=== PATIENT | female | born 1970 | race Caucasian/White ===

== ENCOUNTER 2021-05-13 18:41 | Observation (INO) | payer OTHER, SELFPAY ==
[2021-05-13] VITALS (10 sets, daily range): BP systolic 152–181; BP diastolic 68–90; PULSE 72–95; RESP 16–24; TEMP 36.9; O2SAT 94–100; BMI 34.7
--- NOTE | 2021-05-13 18:46 | ED_ITS ---
HPI - Neuro Symptoms/Deficit General Chief Complaint: Neuro Symptoms/Deficit Stated Complaint: left face/arm/hand numb 30 min ago Time Seen by Provider: 05/13/21 18:45 History of Present Illness HPI Narrative: 51-year-old female former smoker without any known chronic medical problems pr esents with a chief complaint of various neurologic symptoms that had since resolved. She was in her normal state of health until about 1800 tonight when she noticed a rather sudden onset left-sided facial numbness and tingling, confusion, difficulty finding words, left upper extremity numbness and weakness that lasted about 15 minutes and resolved prior to her arrival. She denies any recent trauma or injury. She has had no fever or chills. She denies any new medications or dietary change. She denies any chest pain or shortness of breath. She is currently asymptomatic. She was rapidly taken to CT but not activated as a code stroke as her BEFAST is currently negative and LAMS is negative. Related Data Allergies Allergy/AdvReac Type Severity Reaction Status Date / Time atropine [From ] Allergy Verified 05/13/21 19:25 hyoscyamine [From ] Allergy Verified 05/13/21 19:25 phenobarbital Allergy Verified 05/13/21 19:25 prochlorperazine Allergy Verified 05/13/21 19:25 [From Compazine] scopolamine [From ] Allergy Verified 05/13/21 19:25 Exam Narrative Exam Narrative: GENERAL: [51 year old patient appears stated age. Well-developed patient, in mild distress. HEAD: Atraumatic. Normocephalic. EYES: Pupils equal round and reactive. Extraocular motions intact. No scleral icterus. No injection or drainage. ENT: Nose without bleeding, purulent drainage. Throat without erythema, tonsillar hypertrophy or exudate. Airway patent. NECK: Trachea midline. Non tender CARDIOVASCULAR: Regular rate and rhythm without murmurs, gallops, or rubs. RESPIRATORY: Clear to auscultation. Breath sounds equal bilaterally. No wheezes, rales, or rhonchi. GASTROINTESTINAL: Abdomen soft, non-tender, nondistended. EXTREMITIES: No edema or joint tenderness. BACK: Nontender without deformity or crepitance. No flank tenderness. NEURO: AOx3. SKIN: No rash or erythema of visible areas NIH Stroke Scale 1a. LOC: Patient is alert and keenly responsive (0) 1b. LOC Questions: Patient answers both LOC questions accurately (0) 1c. LOC Commands: Patient performs both tasks correctly (0) 2. Best Gaze: Normal (0) 3. Visual: No visual loss (0) 4. Facial palsy: Normal symmetrical movements (0) 5. Motor arm: No drift (0) 6. Motor leg: No drift (0) 7. Limb ataxia: Absent (0) 8. Sensory: Normal (0) 9. Best language: No aphasia; normal (0) 10. Dysarthria: Normal (0) 11. Extinction and inattention: No abnormality (0) NIHSS: 0 Initial Vital Signs Initial Vital Signs: Vital Signs Temperature 98.4 F 05/13/21 18:55 Pulse Rate 95 H 05/13/21 18:55 Respiratory Rate 16 05/13/21 18:55 Blood Pressure 181/90 H 05/13/21 18:55 Pulse Oximetry 97 05/13/21 18:55 Course Orders Ordered: ED Orders 05/13/21 18:[address] angio head and neck Stat 05/13/21 18:56 Complete Blood Count AUTO DIFF Stat Comprehensive Metabolic Panel Stat Troponin & CK Cardiac Panel Stat 05/13/21 19:17 EKG-12 Lead Stat 05/13/21 19:32 Urine Drug Screen, Rapid Stat 05/13/21 20:32 Education, smoking cessation ONGOING 05/13/21 20:34 Consult to Discharge Planning Routine Consult to Occupational Therapy Evaluate & Treat Consult to Physical Therapy Evaluate & Treat MR stroke Urgent 05/13/21 20:35 EC echo doppler complete Urgent 05/14/21 05:00 Basic Metabolic Panel Routine Complete Blood Count AUTO DIFF Routine Hemoglobin A1C% w Est Avg Glu Routine Lipid Panel Routine Acetaminophen (Acetaminophen 325 Mg Tablet) 650 mg PO Q6HR PRN PRN Reason: Fever/Mild Pain (1-3) Aspirin (Aspirin Ec 81 Mg Tablet) 81 mg PO DAILY [facility] Atorvastatin Calcium (Atorvastatin 20 Mg Tablet) 80 mg PO BEDTIME FABIENNE Last Admin: 05/13/21 21:12 Dose: 80 mg Documented by: SB Enoxaparin Sodium (Enoxaparin 40 Mg/0.4 Ml Syringe) 40 mg SUBCUT DAILY [facility] Sodium Chloride (Normal Saline 0.9%) 1,000 mls @ 150 mls/hr IV CONT [facility] Last Infusion: 05/13/21 23:02 Dose: 0 mls/hr Documented by: Admin: 05/13/21 18:58 Dose: 150 mls/hr Documented by: ORACIO Ondansetron HCl (Ondansetron 4 Mg/2 Ml Inj) 4 mg IV Q8HR PRN PRN Reason: Nausea And Vomiting Discontinued Medications Aspirin (Aspirin 81 Mg Chew Tab) 324 mg PO NOW ONE Stop: 05/13/21 19:12 Last Admin: 05/13/21 19:24 Dose: 324 mg Documented by: SB Consultations Consultation #1: Dr. Maradiaga happy to accept patient on his service Vital Signs Vital signs: Vital Signs - 8 hr 05/13/21 18:55 05/13/21 18:58 05/13/21 19:36 Temperature 98.4 F Pulse Rate 95 H 77 83 Respiratory Rate 16 18 20 Blood Pressure 181/90 H 181/90 H Pulse Oximetry 97 100 98 05/13/21 20:00 05/13/21 20:30 Temperature Pulse Rate 72 77 Respiratory Rate 23 Blood Pressure 152/68 H 160/88 H Pulse Oximetry 98 99 MDM - Neuro Symptoms/Deficit Lab Data Result diagrams: 05/13/21 18:56 05/13/21 18:56 Labs: Lab Results 05/13/21 05/13/21 05/13/21 Range/Units 18:56 18:56 19:32 WBC 7.3 (4.5-11.0) X10^3/uL RBC 4.58 (4.0-5.2) X10^6/uL Hgb 13.7 (12.0-16.0) g/dL Hct 40.2 (36-46) % MCV 87.7 (80-100) fL MCH 30.0 (26-34) PG MCHC 34.2 (30-36) % RDW 12.9 (11.6-14.8) % Plt Count 227 (150-400) X10^3/uL Neut % (Auto) 55.5 (50-75) % Lymph % (Auto) 36.9 (25-40) % [place] % (Auto) 4.8 (3-14) % Eos % (Auto) 2.1 (2-4) % Baso % (Auto) 0.7 (0-2) % Neut # (Auto) 4000 (6178-8435) /uL Lymph # (Auto) 2700 (8673-2144) /uL [place] # (Auto) 300 (0-900) /uL Eos # (Auto) 200 (0-450) /uL Baso # (Auto) 100 (0-100) /uL Sodium 135 L (137-145) mmol/L Potassium 3.8 (3.4-5.1) mmol/L Chloride 99 (98-107) mmol/L Carbon Dioxide 27 (22-32) mmol/L BUN 16 (7-17) mg/dL Creatinine 0.54 (0.52-1.04) mg/dL Estimated GFR > 60.0 (>60) mL/min BUN/Creatinine Ratio 29.6 H (6-22) Glucose 101 H (70-100) mg/dL Calcium 9.5 (8.4-10.2) mg/dL Total Bilirubin 0.5 (0.2-1.3) mg/dL AST 28 (14-36) IU/L ALT 23 (<35) IU/L Alkaline Phosphatase 61 (38-126) U/L Total Creatine Kinase 47 (30-135) U/L CK-MB (CK-2) TNP CK-MB (CK-2) Rel Index TNP Troponin I < 0.012 (0.01-0.034) ng/mL Total Protein 7.1 (6.3-8.2) g/dL Albumin 4.5 (3.5-5.0) g/dL Globulin 2.6 (1.7-4.1) g/dL Albumin/Globulin Ratio 1.7 (1.0-2.8) U Opiates 300ng/mL cut Negative (Negative) Ur Oxycodone Screen Negative (Negative) Urine Methadone Screen Negative (Negative) Ur Barbiturates Screen Negative (Negative) U Tricyclic Antidepress Negative (Negative) Ur Phencyclidine Scrn Negative (Negative) Ur Amphetamines Screen Negative (Negative) U Methamphetamines Scrn Negative (Negative) Ur MDMA Scrn (Ecstasy) Negative (Negative) U Benzodiazepines Scrn Negative (Negative) Urine Cocaine Screen Negative (Negative) U Marijuana (THC) Screen Negative (Negative) Point of Care Testing Glucose POC 108 Urine Dip Bedside Urine Glucose Negative Bedside Urine Bilirubin - Negative Bedside Urine Ketone - Negative Urine Specific [place] 1.010 Bedside Urine Occult Blood - Negative Bedside Urine pH 6.0 Bedside Urine Protein - Negative Bedside Urine Urobilinogen - Negative Bedside Urine Nitrite - Negative Bedside Urine Leukocytes - Negative Esterase Imaging Data CT scan - head: Radiologist's Impression: Shania Conley??51??F??1970 ? Allergy/Adv: atropine, hyoscyamine, phenobarbital, prochlorperazine, scopolamine (More??) Close Head/Neck CTA (Signed) Paul Barroso - 05/13/[address] (Signed) Paul Barroso - 05/13/21 Launch?[place] [address] CT Scan Report Signed Patient: Shania Conley MR#: [id number] : 1970 Acct:[id number] Age/Sex: 51 / F Date of Service: 05/13/21 Loc: ED Accession Number: [id number] ?? Procedure: CT Stroke Ordering Provider: Fredis To D.O. PROCEDURE:? CT STROKE ? INDICATIONS:? stroke symptoms, resolved. left face, arm ? TECHNIQUE:? Noncontrast 4.5 mm thick angled axial sections acquired from the foramen magnum to the vertex, with coronal reformats.? For radiation dose reduction, the following was used:? automated exposure control, adjustment of mA and/or kV according to patient size.? ? COMPARISON:? [facility], CT, CT ANGIO HEAD AND NECK, 05/13/2021, 19:04. ? FINDINGS:? Image quality:? Excellent.? ? CSF spaces:? Basal cisterns are patent.? No extra-axial fluid collections.? Ventricles are normal in size and shape.? ? Brain:? No midline shift.? No intracranial masses or hemorrhage.? Grider-white matter interface is normal.? ? Skull and face:? Calvarium and visualized facial bones are intact, without suspicious lesions.? ? Sinuses:? Visualized sinuses and mastoids are clear.? ? IMPRESSION:? No acute intracranial abnormality. ? Findings were discussed with the emergency department at 1943. Note images went online at 1933. ? ? This study fulfills neurological imaging criteria for inclusion or exclusion of acute stroke therapies based on available published neurological imaging guidelines.? ? ? Dictated by: Paul Barroso M.D. on 05/13/2021 at 19:43 ? ? Approved by: Paul Barroso M.D. on 05/13/2021 at 19:48 ? CTA Head/Neck: Radiologist's Impression: Shania Conley??51??F??1970 ? Allergy/Adv: atropine, hyoscyamine, phenobarbital, prochlorperazine, scopolamine (More??) Close Head/Neck CTA (Signed) Stepan Barrosored - 05/13/[address] (Signed) PrettybenjaminPaul abdul - 05/13/21 Launch?[place] [address] CT Scan Report Signed Patient: Shania Conley MR#: [id number] : 1970 Acct:[id number] Age/Sex: 51 / F Date of Service: 05/13/21 Loc: ED Accession Number: [id number] ?? Procedure: CT angio head and neck Ordering Provider: Fredis To D.O. PROCEDURE:? CT ANGIO HEAD AND NECK ? INDICATIONS:? stroke symptoms, resolved. left face, arm ? TECHNIQUE:? Pre-contrast 4.5 mm thick sections acquired from the foramen magnum to the vertex.? After the administration of intravenous contrast, 1 mm thick sections acquired from the aortic arch through the [place] of [place].? Post-contrast 4.5 mm thick sections then re- acquired from the foramen magnum to the vertex.? 3-dimensional bjlyqag-xtptwqvon-vpfpnwteyc (MIP) and/or volume rendering reformats were acquired of the central intracranial vasculature and neck separately. ? COMPARISON:? None. ? FINDINGS:? Image quality:? Excellent.? ? BRAIN:? CSF spaces:? Ventricles are normal in size and shape.? Basal cisterns are patent.? No extra-axial fluid collections.? ? Brain:? No midline shift.? No intracranial bleeds or masses.? Grider-white matter interface appears intact.? ? Skull and face:? Calvarium and facial bones appear intact, without suspicious lesions.? Orbits appear normal.? ? Sinuses:? Sinuses and mastoids are clear.? ? HEAD CT ANGIOGRAPHY:? Anterior circulation:? Intracranial internal carotid arteries are normal in size and flow.? The flow within the paired anterior cerebral arteries is normal and sym metric.? The flow within the middle cerebral arteries is normal and symmetric.? The anterior communicating artery is seen.? No aneurysms are seen.? ? Posterior circulation:? Visualized portions of the vertebral arteries demonstrate normal caliber, and join to form a normal appearing basilar artery.? Flow within the posterior cerebral arteries is normal and symmetric.? No aneurysms are seen.? ? NECK CT ANGIOGRAPHY:? Carotid system:? The great vessels demonstrate a conventional anatomy as they arise from the aortic arch.? The origins of the common carotid arteries appear patent.? The common carotid arteries demonstrate normal caliber and courses.? The bifurcation regions are both widely patent.? The internal carotid arteries demonstrate normal calibers and courses.? ? Posterior circulation:? The origins of the vertebral arteries both appear widely patent.? The more superior extracranial portions of both vertebral arteries also demonstrate normal courses and calibers.? They join to form a normal appearing basilar artery.? ? Soft tissues:? Visualized neck soft tissues demonstrate no suspicious abnormalities.? ? Bones:? No suspicious bony lesions.? Visualized cervical spine appears normally aligned.? IMPRESSION:? 1. No acute intracranial abnormality. 2. Normal CTA head. 3. Normal CTA neck.? ? Any quantitative measurements of stenosis were performed using NASCET criteria.? ? ? Dictated by: Paul Barroso M.D. on 05/13/2021 at 19:49 ? ? Approved by: Paul Barroso M.D. on 05/13/2021 at 19:56 ? [facility] Narrative Medical decision making narrative: Patient presents with a 15 minute episode of neurologic symptoms including left- sided facial numbness, difficulty finding words, confusion and left upper extremity numbness, tingling and weakness that lasted 15 minutes and resolved prior to arrival. Imaging is unremarkable, no indication for tPA or mechanical retrieval/thrombectomy. Patient likely had a TIA, she will require hospitalization for ongoing evaluation, neurologic checks and likely admi nistration of new medications. She understands and agrees with the plan Discharge Plan Departure Patient Disposition: Admitted as Observation Clinical Impression: Transient cerebral ischemia Admit Date/Time: 05/13/21 20:39 Admit Provider: Mike Maradiaga
--- NOTE | 2021-05-13 18:53 | DI.CT.S_ITS ---
PROCEDURE: CT STROKE INDICATIONS: stroke symptoms, resolved. left face, arm TECHNIQUE: Noncontrast 4.5 mm thick angled axial sections acquired from the foramen magnum to the vertex, with coronal reformats. For radiation dose reduction, the following was used: automated exposure control, adjustment of mA and/or kV according to patient size. COMPARISON: [facility], CT, CT ANGIO HEAD AND NECK, 05/13/2021, 19:04. FINDINGS: Image quality: Excellent. CSF spaces: Basal cisterns are patent. No extra-axial fluid collections. Ventricles are normal in size and shape. Brain: No midline shift. No intracranial masses or hemorrhage. Grider-white matter interface is normal. Skull and face: Calvarium and visualized facial bones are intact, without suspicious lesions. Sinuses: Visualized sinuses and mastoids are clear. IMPRESSION: No acute intracranial abnormality. Findings were discussed with the emergency department at 1943. Note images went online at 1933. This study fulfills neurological imaging criteria for inclusion or exclusion of acute stroke therapies based on available published neurological imaging guidelines. Dictated by: Paul Barroso M.D. on 05/13/2021 at 19:43 Approved by: Paul Barroso M.D. on 05/13/2021 at 19:48
--- NOTE | 2021-05-13 18:53 | DI.CT.S_ITS ---
PROCEDURE: CT ANGIO HEAD AND NECK INDICATIONS: stroke symptoms, resolved. left face, arm TECHNIQUE: Pre-contrast 4.5 mm thick sections acquired from the foramen magnum to the vertex. After the administration of intravenous contrast, 1 mm thick sections acquired from the aortic arch through the [place] of [place]. Post-contrast 4.5 mm thick sections then re-acquired from the foramen magnum to the vertex. 3-dimensional zfobfnq-yebvmjujg-yamohoukcx (MIP) and/or volume rendering reformats were acquired of the central intracranial vasculature and neck separately. COMPARISON: None. FINDINGS: Image quality: Excellent. BRAIN: CSF spaces: Ventricles are normal in size and shape. Basal cisterns are patent. No extra-axial fluid collections. Brain: No midline shift. No intracranial bleeds or masses. Grider-white matter interface appears intact. Skull and face: Calvarium and facial bones appear intact, without suspicious lesions. Orbits appear normal. Sinuses: Sinuses and mastoids are clear. HEAD CT ANGIOGRAPHY: Anterior circulation: Intracranial internal carotid arteries are normal in size and flow. The flow within the paired anterior cerebral arteries is normal and symmetric. The flow within the middle cerebral arteries is normal and symmetric. The anterior communicating artery is seen. No aneurysms are seen. Posterior circulation: Visualized portions of the vertebral arteries demonstrate normal caliber, and join to form a normal appearing basilar artery. Flow within the posterior cerebral arteries is normal and symmetric. No aneurysms are seen. NECK CT ANGIOGRAPHY: Carotid system: The great vessels demonstrate a conventional anatomy as they arise from the aortic arch. The origins of the common carotid arteries appear patent. The common carotid arteries demonstrate normal caliber and courses. The bifurcation regions are both widely patent. The internal carotid arteries demonstrate normal calibers and courses. Posterior circulation: The origins of the vertebral arteries both appear widely patent. The more superior extracranial portions of both vertebral arteries also demonstrate normal courses and calibers. They join to form a normal appearing basilar artery. Soft tissues: Visualized neck soft tissues demonstrate no suspicious abnormalities. Bones: No suspicious bony lesions. Visualized cervical spine appears normally aligned. IMPRESSION: 1. No acute intracranial abnormality. 2. Normal CTA head. 3. Normal CTA neck. Any quantitative measurements of stenosis were performed using NASCET criteria. Dictated by: Paul Barroso M.D. on 05/13/2021 at 19:49 Approved by: Paul Barroso M.D. on 05/13/2021 at 19:56
[2021-05-13] MEDS: SODIUM CHLORIDE 0.9% 1,000 ML 150 ML IV (18:58)
[2021-05-13 19:00] LABS: Add Manual Diff / Slide Review NO; Basophils Absolute Auto 100 /uL (0-100); Basophils Percent Auto 0.7 % (0-2); Eosinophils Absolute Auto 200 /uL (0-450); Eosinophils Percent Auto 2.1 % (2-4); Hematocrit 40.2 % (36-46); Hemoglobin 13.7 g/dL (12.0-16.0); Lymphocytes Absolute Auto 2700 /uL (1100-4500); Lymphocytes Percent Auto 36.9 % (25-40); Mean Corpuscular HGB Conc 34.2 % (30-36); Mean Corpuscular Volume 87.7 fL (80-100); Monocytes Absolute Auto 300 /uL (0-900); Monocytes Percent Auto 4.8 % (3-14); Neutrophils Absolute Auto 4000 /uL (1500-7000); Neutrophils Percent Auto 55.5 % (50-75); Platelet Count 227 X10^3/uL (150-400); Red Blood Cell Count 4.58 X10^6/uL (4.0-5.2); Red Cell Distribution Width 12.9 % (11.6-14.8); White Blood Cell Count 7.3 X10^3/uL (4.5-11.0)
[2021-05-13 19:17] LABS: Alanine Aminotransferase 23 IU/L (<35); Albumin 4.5 g/dL (3.5-5.0); Albumin Globulin Ratio 1.7 (1.0-2.8); Alkaline Phosphatase 61 U/L (38-126); Aspartate Aminotransferase 28 IU/L (14-36); BUN Creatinine Ratio 29.6 (6-22); Bilirubin Total 0.5 mg/dL (0.2-1.3); Blood Urea Nitrogen 16 mg/dL (7-17); Calcium 9.5 mg/dL (8.4-10.2); Carbon Dioxide 27 mmol/L (22-32); Chloride 99 mmol/L (98-107); Creatine Kinase 47 U/L (30-135); Estimated Glomerular Filt Rate > 60.0 mL/min (>60); Globulin 2.6 g/dL (1.7-4.1); Glucose 101 mg/dL (70-100); HEMOLYSIS 19 (0-50); Potassium 3.8 mmol/L (3.4-5.1); Sodium 135 mmol/L (137-145); Total Protein 7.1 g/dL (6.3-8.2)
[2021-05-13] MEDS: ASPIRIN 81 MG CHEW TAB 324 MG PO (19:24)
[2021-05-13 19:28] LABS: Troponin I < 0.012 ng/mL (0.01-0.034)
[2021-05-13 20:01] LABS: UR Morphine/Opiate cutoff 300 Negative (Negative); Ur Creatinine Normal (Normal); Ur Specific Gravity Normal (Normal); Urine Amphetamines Negative (Negative); Urine Barbiturates Negative (Negative); Urine Benzodiazepines Negative (Negative); Urine Cocaine Negative (Negative); Urine MDMA Negative (Negative); Urine Methadone Negative (Negative); Urine Methamphetamines Negative (Negative); Urine Oxycodone Negative (Negative); Urine Phencyclidine Negative (Negative); Urine Tetrahydrocannabinol Negative (Negative); Urine Tricyclic Antidepressant Negative (Negative); Urine pH Normal (Normal)
--- NOTE | 2021-05-13 20:34 | DI.MRI.S_ITS ---
PROCEDURE: MR HEAD/BRAIN WO CON INDICATIONS: tia TECHNIQUE: Noncontrast axial T1 spin echo, axial T2 fast spin echo, sagittal and axial FLAIR, coronal T2 fast spin echo, axial gradient echo, axial diffusion and ADC through the brain. COMPARISON: [facility], CT, CT ANGIO HEAD AND NECK, 05/13/2021, 19:04. [facility], CT, CT STROKE, 05/13/2021, 19:04. FINDINGS: Image quality: Excellent. CSF Spaces: Basal cisterns are patent. No extra-axial fluid collections. Ventricles are normal in size and shape. Brain: Within the right frontal lobe posteriorly, there are tiny foci of abnormal diffusion-weighted signal seen, with the largest seen on series 11, image 74, measuring 2-3 mm. Associated dark signal can be seen on the ADC maps. There is developing T2 weighted signal seen at these sites. No hemorrhage can be seen on the masseter in sensitive sequences. No intracranial masses or hemorrhage. Grider/white matter interface is normal. Brainstem appears normal. No chronic ischemic insults. Normal intravascular flow voids are present. Skull and face: Calvarium has normal marrow signal. Orbits appear normal. Sinuses: Sinuses and mastoids are clear. IMPRESSION: Tiny foci of subacute infarction can be seen involving the right frontal lobe posteriorly. The imaging appearance is most consistent with an embolic phenomenon. Dictated by: Arturo Patel M.D. on 05/14/2021 at 7:58 Approved by: Arturo Patel M.D. on 05/14/2021 at 8:00
[2021-05-13] MEDS: ATORVASTATIN 20 MG TABLET 80 MG PO (21:12)
--- NOTE | 2021-05-13 21:25 | P.HP_ITS ---
History of Present Illness History of Present Illness Date Patient Seen: 05/13/21 Time Patient Seen: 20:30 Chief complaint: left face/arm/hand numb 30 min ago Narrative: Ms. Conley is a 51W with no significant PMH who presents with left sided facial numbness and left hand/arm numbness, and difficulty with movement. She was at work, when she noted she all of a sudden felt off. She was not lightheaded, but she felt disoriented. She felt warmth and numbness on the left side of her face. She felt like her hand had fallen asleep. She had difficulty using her [place]. She was noted by others at her work to look like a deer in headlights. She had essentially improved after 15-20 minutes. She was then brought in to the hospital. In the ED, vitals notable for elevated blood pressure in 180s, mild tachycardia in 90s. Labs notable for WBC 7.3, creatinine 0.54, trop negative. CT head with no acute process. CTA head/neck with no evidence of any abnormality. She did get aspirin and was admitted for further treatment. Family history - Grandmother - hypertension Social history - former smoker Medications - none Patient History Family & Social History Safety & Behavioral: Feels Safe in Current Yes Environment Been Physically Hurt or No Threatened By a Person Meds Home Medications and Allergies Allergies Allergy/AdvReac Type Severity Reaction Status Date / Time atropine [From ] Allergy Verified 05/13/21 19:25 hyoscyamine [From ] Allergy Verified 05/13/21 19:25 phenobarbital Allergy Verified 05/13/21 19:25 prochlorperazine Allergy Verified 05/13/21 19:25 [From Compazine] scopolamine [From ] Allergy Verified 05/13/21 19:25 Review of Systems Review of Systems Narrative: 14 systems reviewed and negative aside from what is noted in HPI Exam Vital Signs (past 8 hours): - 05/13/21 18:55 05/13/21 18:58 05/13/21 19:36 Temperature 98.4 F Pulse Rate 95 H 77 83 Respiratory Rate 16 18 20 Blood Pressure 181/90 H 181/90 H Pulse Oximetry 97 100 98 05/13/21 20:00 05/13/21 20:30 Temperature Pulse Rate 72 77 Respiratory Rate 23 Blood Pressure 152/68 H 160/88 H Pulse Oximetry 98 99 Oxygen Delivery Method Room Air Narrative Exam Narrative: GEN: no acute distress HEENT: PERRL, moist mucous membranes NECK: trachea midline, no JVD CV: regular rate and rhythm, no murmurs PULM: clera bilaterally, no wheezes, rhonchi, rales ABD: soft, nontender, nondistended, no organomegaly, normal bowel sounds EXT: warm and well perfused with no edema, NEURO: awake, alert, oriented, cranial nerve 2-12 intact, sensation intact, no facial droop, rapid alternating movements and heel to ospina intact, upper and lower extremities 5/5 strength bilaterally PSYCH: pleasant cooperative Objective Labs Result Diagrams: 05/13/21 18:56 05/13/21 18:56 Labs: Laboratory Results - last 24 hr 05/13/21 05/13/21 05/13/21 18:56 18:56 19:32 WBC 7.3 RBC 4.58 Hgb 13.7 Hct 40.2 MCV 87.7 MCH 30.0 MCHC 34.2 RDW 12.9 Plt Count 227 Neut % (Auto) 55.5 Lymph % (Auto) 36.9 [place] % (Auto) 4.8 Eos % (Auto) 2.1 Baso % (Auto) 0.7 Neut # (Auto) 4000 Lymph # (Auto) 2700 [place] # (Auto) 300 Eos # (Auto) 200 Baso # (Auto) 100 Sodium 135 L Potassium 3.8 Chloride 99 Carbon Dioxide 27 BUN 16 Creatinine 0.54 Estimated GFR > 60.0 BUN/Creatinine Ratio 29.6 H Glucose 101 H Calcium 9.5 Total Bilirubin 0.5 AST 28 ALT 23 Alkaline Phosphatase 61 Total Creatine Kinase 47 CK-MB (CK-2) TNP CK-MB (CK-2) Rel Index TNP Troponin I < 0.012 Total Protein 7.1 Albumin 4.5 Globulin 2.6 Albumin/Globulin Ratio 1.7 U Opiates 300ng/mL cut Negative Ur Oxycodone Screen Negative Urine Methadone Screen Negative Ur Barbiturates Screen Negative U Tricyclic Antidepress Negative Ur Phencyclidine Scrn Negative Ur Amphetamines Screen Negative U Methamphetamines Scrn Negative Ur MDMA Scrn (Ecstasy) Negative U Benzodiazepines Scrn Negative Urine Cocaine Screen Negative U Marijuana (THC) Screen Negative Assessment & Plan Assessment & Plan narrative: Ms. Conley is a 51W with no significant PMH who presents with left arm and face numbness, with left arm weakness that is now resolved. 1. TIA, acute -presented initially with left sided facial, arm numbness, left arm difficulty moving -symptoms resolved within 15-20 minutes -NIH 0 -CT head and CTA head/neck shows no acute process -MRI head ordered, ECHO ordered -NIH q4 -ordered aspirin, atorvastatin -ordered lipids, a1c -blood pressure elevated on admission, continue to trend and may need to start anti-hypertensives 2. Elevated blood pressure -unlear if chronic, patient denies history of hypertension -no indication for acute lowering of blood pressure currently CODE: Full Proxy: Margarette Rincon, family I have utilized all available immediate resources to obtain, update, or review of the patient's current medications Time Spent With Patient Critical Care time: I spent a total of [] minutes of critical care time on this patient's care today; this time is exclusive of procedural time.
[2021-05-14] VITALS (34 sets, daily range): BP systolic 114–132; BP diastolic 63–86; PULSE 61–98; RESP 13–24; TEMP 36.1; O2SAT 92–98
[2021-05-14 05:42] LABS: Add Manual Diff / Slide Review NO; Basophils Absolute Auto 0 /uL (0-100); Basophils Percent Auto 0.7 % (0-2); Eosinophils Absolute Auto 200 /uL (0-450); Eosinophils Percent Auto 3.6 % (2-4); Hematocrit 37.6 % (36-46); Hemoglobin 12.9 g/dL (12.0-16.0); Lymphocytes Absolute Auto 2400 /uL (1100-4500); Lymphocytes Percent Auto 47.3 % (25-40); Mean Corpuscular HGB Conc 34.3 % (30-36); Mean Corpuscular Volume 87.3 fL (80-100); Monocytes Absolute Auto 400 /uL (0-900); Monocytes Percent Auto 7.2 % (3-14); Neutrophils Absolute Auto 2100 /uL (1500-7000); Neutrophils Percent Auto 41.2 % (50-75); Platelet Count 217 X10^3/uL (150-400); Red Blood Cell Count 4.31 X10^6/uL (4.0-5.2); White Blood Cell Count 5.2 X10^3/uL (4.5-11.0)
[2021-05-14 05:58] LABS: BUN Creatinine Ratio 23.5 (6-22); Blood Urea Nitrogen 12 mg/dL (7-17); Carbon Dioxide 27 mmol/L (22-32); Chloride 105 mmol/L (98-107); Cholesterol 173 mg/dL (140-199); Estimated Glomerular Filt Rate > 60.0 mL/min (>60); Glucose 92 mg/dL (70-100); HDL Cholesterol 71 mg/dL (40-60); HEMOLYSIS < 15 (0-50); LDL Cholesterol Calculated 82 mg/dL (<100); Sodium 138 mmol/L (137-145); Triglycerides 101 mg/dL (35-150)
[2021-05-14 06:11] LABS: Hemoglobin A1C% w Est Avg Glu 5.1 % (4.0-6.0)
[2021-05-14] MEDS: ASPIRIN EC 81 MG TABLET PO (08:55)
[2021-05-14] MEDS: ENOXAPARIN 40 MG/0.4 ML SYRINGE SUBCUT (08:55)
--- NOTE | 2021-05-14 13:54 | PT.IIE ---
Physical Therapy Inpatient Evaluation/Re-Eval M1 PT/OT-IP Prior Functional Status Start: 05/14/21 10:13 Freq: NEEDED Status: Active Protocol: Document 05/14/21 13:43 SAK (Rec: 05/14/21 13:53 [facility] [id number]) Medical Review Prior Functional Status Medical History Reviewed Yes Diet/Fluid Consistency Regular Communication WNL Mobility and Gait independent, no assistive device Activities of Daily Living and IADL's independent Prior Functional Level (Other details) works at [employer] Social History Household Members children Living Arrangements House Number of Floors (Floors) Two Floors Number of Stairs To Enter/Railing? 4, railing Home Environment Standard Height Toilet Employment Status Math Professor Employed M2 PT-IP Current Condition Start: 05/14/21 10:13 Freq: NEEDED Status: Active Protocol: Document 05/14/21 13:43 SAK (Rec: 05/14/21 13:53 [facility] [id number]) Physical Therapy Current Condition Current Condition Evaluation Date 05/14/21 Treatment Diagnosis left face, arm, hand numbness and weakness Onset Date 05/13/21 M3 PT-IP Subjective Start: 05/14/21 10:13 Freq: NEEDED Status: Active Protocol: Document 05/14/21 13:43 SAK (Rec: 05/14/21 13:53 [facility] [id number]) Subjective Physical Therapy Visit Type Type Initial Evaluation Visit Start Time 11:04 Visit Stop Time 11:32 Total Visit Minutes 28 Physical Therapy Visit Comments Patient Comments Patient reports all her symptoms were in her left face , arm and hand, doesn't feel her LE strength or balance affected. Patient Goals to return home Therapy Pain Assessment Pain When Pain Assessed denied demetria M4 PT-IP Mobility and Gait Start: 05/14/21 10:13 Freq: NEEDED Status: Active Protocol: Document 05/14/21 13:43 SAK (Rec: 05/14/21 13:53 [facility] [id number]) PT-Bed Mobility Assessment Rolling Type of Rolling Roll to Left Level of Assist Independent Supine to Sit Supine to Sit Independent Sit to Supine Sit to Supine Independent Scooting Scooting to Edge of Bed Independent PT-Transfer Assessment Sit to and From Stand Sit to and from Stand Independent Equipment Transfer Assistive Device None Transfers Transfer Destination Bed Transfer Technique Stand Step Pivot Transfer Ability Level of Assist Independent Comments Mobility Comments no LOB Gait Assessment Gait Gait Assistance Required: Independent Distance (Feet) 100 Assistive Devices Assistive Device Gait Belt Comments Gait Comments No LOB, no safety issues noted . Patient has been ambulating to BR on her own while in ER Stair Climbing Assessment Comments Stair Climbing Comments NA PT-Balance Assessment Sitting Balance and Reactions Static Sitting Balance Ability Normal Dynamic Sitting Balance Ability Normal Standing Balance and Reactions Static Standing Balance Ability Normal Dynamic Standing Balance Ability Normal Balance Tests Single Limb Standing 7 sec right, 6 sec left M5 PT-IP Objective Assessments Start: 05/14/21 10:13 Freq: NEEDED Status: Active Protocol: Document 05/14/21 13:43 [facility] (Rec: 05/14/21 13:53 [facility] [id number]) Orientation Orientation/Cognition Level of Alertness Alert Orientation Name,Age,Day of Week,Place, Situation Language Function Ability No Deficits Noted Safety Awareness Understands Safety Issues Memory Description No Deficits Noted Gross Range of Motion Upper Extremity ROM Assessment Within Functional Limits Lower Extremity ROM Assessment Within Functional Limits Strength Upper Extremity Strength Assessment Within Functional Limits Lower Extremity Strength Assessment Within Functional Limits Comments Strength Comments mild deficit left UE though is patient non-dominant side Sensation Assessment Sensation Gross Sensation WNL Comments Sensation Comments denied N/T at this time Muscle Tone Muscle Tone WNL Yes M7 PT-IP Assessment and Plan Start: 05/14/21 10:13 Freq: NEEDED Status: Active Protocol: Document 05/14/21 13:43 [facility] (Rec: 05/14/21 13:53 [facility] [id number]) PT Summary Assessment and Plan Potential Rehabilitation Potential Excellent Status of Condition at Evaluation Stable Summary Assessment Summary Patient evaluated for PT needs , does not appear to have any at this time. Strength and ROM WFL, bed mobility, transfers, and gait are al independent without any noted LOB. Patient reporting her symptoms have resolved. No PT needs Frequency of Treatment Frequency Of Treatment Discharge Discharge Recommendations PT Discharge Recommendations Home Transportation Needs at Discharge Private Vehicle
--- NOTE | 2021-05-14 14:48 | PM.DS.1 ---
History of Present Illness History of Present Illness Chief complaint: left face/arm/hand numb 30 min ago Narrative: Ms. Conley is a 51W with no significant PMH who presents with left sided facial numbness and left hand/arm numbness, and difficulty with movement. She was at work, when she noted she all of a sudden felt off. She was not lightheaded, but she felt disoriented. She felt warmth and numbness on the left side of her face. She felt like her hand had fallen asleep. She had difficulty using her hand. She was noted by others at her work to look like a deer in headlights. She had essentially improved after 15-20 minutes. She was then brought in to the hospital. In the ED, vitals notable for elevated blood pressure in 180s, mild tachycardia in 90s. Labs notable for WBC 7.3, creatinine 0.54, trop negative. CT head with no acute process. CTA head/neck with no evidence of any abnormality. She did get aspirin and was admitted for further treatment. Family history - Grandmother - hypertension Social history - former smoker Medications - none Discharge Providers Provider Date of admission: 05/13/21 20:39 Discharge Date: 05/14/21 Consults: 05/13/21 20:34 Consult to Discharge Planning Routine Comment: Consult to Occupational Therapy Evaluate & Treat Comment: Physician Instructions: Evaluate and treat Consult to Physical Therapy Evaluate & Treat Comment: Physician Instructions: Evaluate and Treat Discharge provider: Kiki Patrick DO Summary Hospital Course Discharge Diagnosis: POSSIBLE TIA. DISCHARGE ON STATIN THERAPY WELL ASPIRATED BETA-IBRAHIMA SUB ACUTE CVA PER MRI. TO BE FOLLOW OUTPATIENT BY NEUROLOGY ACCELERATED HYPERTENSION. DISCHARGED ON COREG OBESITY. BMI OF 34. LAST OPTION IS RECOMMENDED Hospital Course: THIS IS A 52-YEAR-OLD FEMALE WHO PRESENTED TO THE HOSPITAL WITH FACIAL NUMBNESS AND SOME CONFUSION. HER WORKUP INCLUDED AN MRI WHICH SHOWED A SUBACUTE INFARCT SHE WAS TREATED WITH ASPIRIN, ANTI-LIPID THERAPY WELL ANTIHYPERTENSIVE MED DUE TO ELEVATED BLOOD PRESSURE NOTED ADMISSION HER SYMPTOMS HAVE COMPLETELY RESOLVED AT THIS TIME. ECHOCARDIOGRAM DONE AND DID NOT SHOW ANY SIGNIFICANT DISEASE. ADDITIONAL MANAGEMENT WILL BE DEFERRED TO OUTPATIENT PROVIDERS Status at Discharge Cognitive/behavioral status at discharge: oriented Functional status at discharge: independent ambulation Overall status at discharge: patient is back to baseline Time Spent with Patient Time spent: Greater than 30 minutes Exam Vital Signs (past 8 hours): - 05/14/21 07:00 05/14/21 07:30 05/14/21 08:45 Temperature Pulse Rate 62 61 77 Respiratory Rate 19 20 Blood Pressure Pulse Oximetry 96 05/14/21 08:48 05/14/21 09:00 05/14/21 09:30 Temperature 97 F L Pulse Rate 77 81 85 Respiratory Rate 13 16 24 Blood Pressure 132/86 Pulse Oximetry 97 97 96 05/14/21 10:00 05/14/21 10:30 05/14/21 11:00 Temperature Pulse Rate 87 83 74 Respiratory Rate 20 23 20 Blood Pressure Pulse Oximetry 96 94 94 05/14/21 11:38 05/14/21 12:00 05/14/21 12:28 Temperature Pulse Rate 80 79 79 Respiratory Rate 15 Blood Pressure 123/77 Pulse Oximetry 96 95 98 05/14/21 12:30 05/14/21 13:00 Temperature Pulse Rate 80 88 Respiratory Rate 23 21 Blood Pressure Pulse Oximetry 95 95 Oxygen Delivery Method Room Air Narrative Exam Narrative: NO ACUTE DISTRESS. PATIENT IS ALERT ORIENTED X3. VITAL SIGNS STABLE HEAD ATRAUMATIC NORMOCEPHALIC NECK : SUPPLE WITHOUT ADENOPATHY NO CAROTID BRUITS EYE: EOMI, PERRLA, NORMAL CONJUNCTIVA; NO JAUNDICE CHEST: REGULAR RATE. NO RUBS. PMI IS NON DISPLACED. NO MURMURS; NORMAL S1-S2 PULMONARY: DECREASED BS OVER THE BASES. MILD BIBASILAR CRACKLES NOTED; NO INCREASED DULLNESS TO PERCUSSION ABDOMEN: SOFT. NONTENDER. NONDISTENDED. BOWEL SOUNDS ARE PRESENT IN ALL 4 QUADRANTS. NO MASS. EXTREMITIES: NO EDEMA.. NO CYANOSIS CLUBBING NOTED. NEURO: CRANIAL NERVES 2-12 GROSSLY INTACT. NO FOCAL NEUROLOGICAL DEFICIT NOTED. MSK: NORMAL RANGE OF MOTION FOR AGE. NO JOINT EFFUSION. SKIN: NORMAL FOR ETHNICITY; NO ECCHYMOSIS. NO LESION. GOOD TURGOR.; NO RASHES : NORMAL EXTERNAL GENITALIA. PSYCH : APPROPRIATE MOOD AND AFFECT. ALERT AWAKE ORIENTED X3 Objective Labs Result Diagrams: 05/14/21 05:03 05/14/21 05:03 Labs: Laboratory Results - last 24 hr 05/13/21 05/13/21 05/13/21 18:56 18:56 19:32 WBC 7.3 RBC 4.58 Hgb 13.7 Hct 40.2 MCV 87.7 MCH 30.0 MCHC 34.2 RDW 12.9 Plt Count 227 Neut % (Auto) 55.5 Lymph % (Auto) 36.9 [place] % (Auto) 4.8 Eos % (Auto) 2.1 Baso % (Auto) 0.7 Neut # (Auto) 4000 Lymph # (Auto) 2700 [place] # (Auto) 300 Eos # (Auto) 200 Baso # (Auto) 100 Sodium 135 L Potassium 3.8 Chloride 99 Carbon Dioxide 27 BUN 16 Creatinine 0.54 Estimated GFR > 60.0 BUN/Creatinine Ratio 29.6 H Glucose 101 H Hemoglobin A1c Calcium 9.5 Total Bilirubin 0.5 AST 28 ALT 23 Alkaline Phosphatase 61 Total Creatine Kinase 47 CK-MB (CK-2) TNP CK-MB (CK-2) Rel Index TNP Troponin I < 0.012 Total Protein 7.1 Albumin 4.5 Globulin 2.6 Albumin/Globulin Ratio 1.7 Triglycerides Cholesterol LDL Cholesterol, Calc HDL Cholesterol U Opiates 300ng/mL cut Negative Ur Oxycodone Screen Negative Urine Methadone Screen Negative Ur Barbiturates Screen Negative U Tricyclic Antidepress Negative Ur Phencyclidine Scrn Negative Ur Amphetamines Screen Negative U Methamphetamines Scrn Negative Ur MDMA Scrn (Ecstasy) Negative U Benzodiazepines Scrn Negative Urine Cocaine Screen Negative U Marijuana (THC) Screen Negative 05/14/21 05/14/21 05/14/21 05:03 05:03 05:03 WBC 5.2 RBC 4.31 Hgb 12.9 Hct 37.6 MCV 87.3 MCH 30.0 MCHC 34.3 RDW 13.0 Plt Count 217 Neut % (Auto) 41.2 L Lymph % (Auto) 47.3 H [place] % (Auto) 7.2 Eos % (Auto) 3.6 Baso % (Auto) 0.7 Neut # (Auto) 2100 Lymph # (Auto) 2400 [place] # (Auto) 400 Eos # (Auto) 200 Baso # (Auto) 0 Sodium 138 Potassium 4.0 Chloride 105 Carbon Dioxide 27 BUN 12 Creatinine 0.51 L Estimated GFR > 60.0 BUN/Creatinine Ratio 23.5 H Glucose 92 Hemoglobin A1c 5.1 Calcium 9.0 Total Bilirubin AST ALT Alkaline Phosphatase Total Creatine Kinase CK-MB (CK-2) CK-MB (CK-2) Rel Index Troponin I Total Protein Albumin Globulin Albumin/Globulin Ratio Triglycerides 101 Cholesterol 173 LDL Cholesterol, Calc 82 HDL Cholesterol 71 H U Opiates 300ng/mL cut Ur Oxycodone Screen Urine Methadone Screen Ur Barbiturates Screen U Tricyclic Antidepress Ur Phencyclidine Scrn Ur Amphetamines Screen U Methamphetamines Scrn Ur MDMA Scrn (Ecstasy) U Benzodiazepines Scrn Urine Cocaine Screen U Marijuana (THC) Screen PFSH Social History household members: children Discharge Plan Discharge Plan Patient Disposition: Home Nursing Discharge Comment: PCP TO ORDER ECHOCARDIOGRAM OUTPATIENT Discharge orders & Medications Prescriptions: New aspirin 81 mg Tablet,Delayed Release (Dr/Ec) 162 mg PO DAILY Qty: 60 2RF atorvastatin 40 mg tablet 40 mg PO BEDTIME Qty: 90 3RF niacin 500 mg capsule, extended release 500 mg PO BEDTIME Qty: 90 2RF omega 6-cwe-jlv-fish oil [Fish Oil] 1,000 mg (120 mg-180 mg) capsule 1 cap PO DAILY Qty: 90 2RF carvedilol 3.125 mg tablet 3.125 mg PO Q12H Qty: 120 3RF Rx Instructions: must administer with a meal/food Diet/Activity/Treatments Diet: Carb-consistent/Diabetic, Low-fat and Low-cholesterol Activity: TOLERATED Skin/Wound/Dressing Care Report to your healthcare provider any signs of infection, such as:: chills, fever and night sweats Discharge Data Attending Provider: Mike Maradiaga
[2021-05-14 14:50] LABS: COVID19 - ADMIT (NP swab/PCR) Negative (Negative)
--- NOTE | 2021-05-14 15:39 | DI.ECHO.S_ITS ---
:Reason For Study: TIA : :Ordering Physician: [place] : :Hospitalist Performed By: Negar Mayo : :Referring: BONILLA SOHAIL : + + Interpretation Summary The left ventricle is normal in size and wall thickness. The ejection fraction is estimated to be 60-65%. There is no obvious LV thrombus. The right ventricle is normal in size and function. Doppler interrogation and injection of saline echo contrast shows no evidence for an interatrial shunt. There is moderate tricuspid regurgitation. The right ventricular systolic pressure is estimated to be at least 31 mmHg based on an estimated right atrial pressure of 3 mm Hg. The patient was in normal sinus rhythm during the exam. Procedure: A two-dimensional transthoracic echocardiogram with color flow and Doppler was performed. The study quality was technically adequate. A saline contrast injection was performed to assess for cardiac shunting. There is no prior echocardiogram noted for this patient. The patient was in normal sinus rhythm during the exam. Left Ventricle: The left ventricle is normal in size and wall thickness. There is no thrombus. A false chord is noted (normal variant). The ejection fraction is estimated to be 60-65%. There are no focal wall motion abnormalities. Diastolic parameters suggest probable normal left ventricular diastolic function and normal filling pressures. Right Ventricle: The right ventricle is normal in size and function. Atria: Both atria are normal in size. Doppler interrogation and injection of saline echo contrast shows no evidence for an interatrial shunt. Bubble study was captured on image frame(s) # 74. Mitral Valve: The mitral valve is normal in structure and function. There is trace mitral regurgitation. Aortic Valve: The aortic valve is normal in structure and function. The aortic valve is trileaflet. There is no aortic valve stenosis. No aortic regurgitation is present. Tricuspid Valve: The tricuspid valve is normal. There is moderate tricuspid regurgitation. The right ventricular systolic pressure is estimated to be at least 31 mmHg based on an estimated right atrial pressure of 3 mm Hg. Pulmonic Valve: The pulmonic valve leaflets are thin and pliable; valve motion is normal. There is trace pulmonic regurgitation. Great Vessels: The aortic root is normal size. The ascending aorta is normal in size. The aortic arch is normal in size. The IVC is of normal diameter and collapses greater than 50% with a sniff. This suggests a low right atrial pressure of 3 mm Hg. Pericardium/ Pleura There is a trivial pericardial effusion noted. There are no echocardiographic indications of cardiac tamponade. MMode/2D Measurements & Calculations LVIDd: 4.1 cm LVOT diam: 2.0 cm LVIDs: 2.5 cm Ao root diam: 2.9 cm FS: 38.1 % Aortic Jxn: 2.5 cm EPSS: 0.21 cm asc Aorta Diam: 3.3 cm IVSd: 0.83 cm Ao Arch Diam (Prox Trans): 2.8 cm LVPWd: 0.87 cm LV rogers. diameter/BSA (cm/m^2): 2.2 LV sys. diameter/BSA (cm/m^2): 1.4 LA A2 area: 18.9 cm2 RA long axis: 5.4 cm LA A4 area: 19.8 cm2 RA area: 14.7 cm2 LA length (vol): 5.5 cm RA vol: 33.8 ml LA vol: 57.8 ml RA : 18.1 ml/m2 LA vol index: 30.9 ml/m2 IVC diam: 1.3 cm RVD1 (basal): 3.5 cm TAPSE: 2.3 cm Doppler Measurements & Calculations Ao V2 max: 161.6 cm/sec LVOT Max Rocco: 116.4 cm/sec Ao V2 mean: 110.8 cm/sec LV V1 max P.4 mmHg Ao max P.4 mmHg LV V1 VTI: 23.3 cm Ao mean P.5 mmHg FELICIA(I,D): 2.2 cm2 Ao V2 VTI: 34.8 cm FELICIA(V,D): 2.3 cm2 sev ratio: 0.67 FELICIA indexed to BSA (cm^2/m^2): 1.2 MV E max rocco: 78.7 cm/sec TR max rocco: 264.0 cm/sec MV A max rocco: 75.5 cm/sec TR max P.9 mmHg MV E/A: 1.0 PA V2 max: 110.3 cm/sec Med Peak E' Rocco: 9.2 cm/sec PA V2 mean: 82.1 cm/sec E/E' med: 8.6 PA mean P.9 mmHg Lat Peak E' Rocco: 9.8 cm/sec PA Accel Time: 0.15 sec E/E' lat: 8.0 E/e' average: 8.3 MV dec time: 0.22 sec SV(LVOT): 75.3 ml Reading Physician:04:38 PM
== END 2021-05-14 15:20 | disposition home or self-care (01) ==
LOC: ED 19:33 → AC 20:40
PROVIDERS: Hospitalist; Admitting Provider Internal Medicine; Emergency Provider Emergency Medicine; Referring Provider Emergency Medicine; Visit Provider Internal Medicine
DX: R29.818 Other symptoms and signs involving the nervous system (principal); R20.0 Anesthesia of skin; R41.0 Disorientation, unspecified; R03.0 Elevated blood-pressure reading, without diagnosis of hypertension; R29.700 NIHSS score 0; E66.9 Obesity, unspecified; Z68.34 Body mass index [BMI] 34.0-34.9, adult; Z20.822 Contact with and (suspected) exposure to COVID-19
CPT/HCPCS: 36415; 70450; 70496; 70498; 70551; 80048; 80053; 80061; 80305; 81003; 82550; 82962; 83036; 84484; 85025; 87635; 93005; 93306; 96360; 96361; 96372; 97161; 99285; 99406; C9803; G0378; J1650; Q9967

== ENCOUNTER 2021-07-23 01:39 | Emergency (ER) | payer OTHER, SELFPAY ==
[2021-07-23 01:52] VITALS: BP 136/87; PULSE 74; RESP 18; TEMP 36.6; O2SAT 98; BMI 34.5
--- NOTE | 2021-07-23 01:53 | DI.CT.S_ITS ---
PROCEDURE: CT HEAD/BRAIN WO CON INDICATIONS: dizzy TECHNIQUE: Noncontrast 4.5 mm thick angled axial sections acquired from the foramen magnum to the vertex, with coronal and sagittal reformats. For radiation dose reduction, the following was used: automated exposure control, adjustment of mA and/or kV according to patient size. COMPARISON: [facility], CT, CT STROKE, 05/13/2021, 19:04. [facility], CT, CT ANGIO HEAD AND NECK, 05/13/2021, 19:04. [facility], MR, MR HEAD/BRAIN WO CON, 05/14/2021, 8:09. [facility], CR, XR CHEST 1V, 07/23/2021, 1:50. FINDINGS: Image quality: Mild streak artifact can be seen through the skull base. CSF spaces: Basal cisterns are patent. No extra-axial fluid collections. Ventricles are normal in size and shape. Brain: No midline shift. No intracranial masses or hemorrhage. Grider-white matter interface is normal. Skull and face: Calvarium and visualized facial bones are intact, without suspicious lesions. Sinuses: Visualized sinuses and mastoids are clear. IMPRESSION: Normal noncontrast head CT for age. If there is strong clinical suspicion for an acute stroke, please consider a brain MRI for further evaluation, as it is more sensitive (assuming that there is no contraindication to MRI). Note: No significant discrepancy from the preliminary report. Dictated by: Arturo Patel M.D. on 07/23/2021 at 7:35 Approved by: Arturo Patel M.D. on 07/23/2021 at 7:37
--- NOTE | 2021-07-23 01:53 | DI.RAD.S_ITS ---
PROCEDURE: XR CHEST 1V INDICATIONS: dizzy TECHNIQUE: One view of the chest was acquired. COMPARISON: [facility], CT, CT HEAD/BRAIN WO CON, 07/23/2021, 1:57. FINDINGS: Surgical changes and devices: None. Lungs and pleura: Lungs are clear. No pleural effusions or pneumothorax. Mediastinum: Mediastinal contours appear normal. Heart size is normal. Bones and chest wall: No suspicious bony lesions. Overlying soft tissues appear unremarkable. IMPRESSION: Normal portable chest. Note: No significant discrepancy from the preliminary report. Dictated by: Arturo Patel M.D. on 07/23/2021 at 7:34 Approved by: Arturo Patel M.D. on 07/23/2021 at 7:34
--- NOTE | 2021-07-23 01:56 | ED.SYNCOPE ---
HPI - Syncope General Chief Complaint: Syncope Stated Complaint: woke up hot, passed out, checked by EMS, post TIA Time Seen by Provider: 07/23/21 01:43 Source: patient and family Mode of arrival: Ambulatory Limitations: no limitations History of Present Illness HPI narrative: Patient is a 51-year-old female who has history of stroke, TIA, hypertension, hyperlipidemia presenting today with near syncopal episode. She says she woke up from a sleep and felt like she was on colds, she was burning up. She had up to use the restroom she felt extremely hot dizzy lightheaded. She got to the toilet where she passed out briefly. states that she was sweaty and eyes rolled in the back of her head. It lasted briefly. She was able to get back to bed. She still does not feel quite right. She has no numbness tingling or weakness. Previously he had left-sided weakness. She was admitted May 14 2021 for TIA but MRI found subacute stroke. She is quite anxious that she may have another stroke. She has been taking her medicine as indicated. She is starting feel a bit better. Related Data Previous Rx's Medication Instructions Recorded aspirin 81 mg tablet,delayed 162 mg PO DAILY #60 tab 05/14/21 release atorvastatin 40 mg tablet 40 mg PO BEDTIME #90 tab 05/14/21 carvedilol 3.125 mg tablet 3.125 mg PO Q12H #120 tab 05/14/21 niacin 500 mg capsule,extended 500 mg PO BEDTIME #90 cap 05/14/21 release omega 3-wnd-ait-fish oil 1,000 mg 1 cap PO DAILY #90 cap 05/14/21 (120 mg-180 mg) capsule (Fish Oil) Allergies Allergy/AdvReac Type Severity Reaction Status Date / Time atropine [From ] Allergy Verified 05/13/21 19:25 hyoscyamine [From ] Allergy Verified 05/13/21 19:25 phenobarbital Allergy Verified 05/13/21 19:25 prochlorperazine Allergy Verified 05/13/21 19:25 [From Compazine] scopolamine [From ] Allergy Verified 05/13/21 19:25 Review of Systems Review of Systems Narrative: GENERAL: Denies chills, fatigue, malaise, fever, sweats, travel HEENT: Denies sinus pain, ear pain, sore throat, difficulty swallowing, neck pain RESPIRATORY: Denies dyspnea, cough, wheezing, hemoptysis, sputum. CARDIOVASCULAR: Denies chest pain, palpitations, orthopnea, edema GASTROINTESTINAL: Denies nausea, vomiting, abdominal pain, diarrhea, constipation, melena. : Denies dysuria, frequency, incontinence, hematuria, urinary retention, flank pain. MUSCULOSKELETAL: Denies weakness, joint pain, or bony pain SKIN: No rash, no erythema, no pruritus NEUROLOGIC: See HPI PSYCHIATRIC: No concerning psychosocial issues. 12 point review of systems is negative except for those stated above and HPI Patient History Medical History CVA (cerebral vascular accident) Social History household members: children Smoking Status: Never smoker Smoking Status: Never smoker alcohol intake frequency: 0-2 drinks per day Substance Use Type: does not use Exam Initial Vital Signs Initial Vital Signs: Vital Signs Temperature 97.9 F 07/23/21 01:52 Pulse Rate 74 07/23/21 01:52 Respiratory Rate 18 07/23/21 01:52 Blood Pressure 136/87 07/23/21 01:52 Pulse Oximetry 98 07/23/21 01:52 GENERAL: Well-appearing, well-nourished and in no acute distress. HEENT: Head atraumatic,EOMI, pupils reactive, face symmetric, moist mucous membranes CARDIOVASCULAR: Regular rate and rhythm without murmurs, rubs or gallops. RESPIRATORY: Breath sounds equal bilaterally, no wheezes rales or rhonchi. ABDOMEN: Soft, nontender. Normoactive bowel sounds all 4 quadrants. No guarding or rebound. EXTREMITIES: Normal range of motion, no clubbing or edema. Neurovascularly intact NEUROLOGICAL: Alert and oriented x4.Normal gait and speech. Cranial nerves II through XII grossly intact. Good [id number], good [id number], strength equal bilaterally, no dysarthria or aphasia, sensation in tact to soft touch bilaterally, no visual changes, no facial droop SKIN: Warm, dry, no laceration, no petechiae, no rashes or lesions. Scores NIH Stroke Scale Level of Conciousness: Alert, keenly responsive Ask month/age: Answers both questions correctly. Open/close eyes, close hand: Performs both tasks correctly Best gaze horizontal: Normal Visual edng: No visual loss Facial palsy: Normal symetrical movement Left arm drift: No drift for full 10 sec Right arm drift: No drift for full 10 sec Left leg drift: No drift for full 5 sec Right leg drift: No drift for full 5 sec Limb ataxia: Absent Sensory on face/arms/legs: Normal, no sensory loss Best language: No aphasia, normal Dysarthria: Normal Extinction or inattention: No abnormality Total NIH Stroke scale score: 0 Course Orders Ordered: ED Orders 07/23/21 01:50 Comprehensive Metabolic Panel Stat Lactate (Lactic Acid) Stat 07/23/21 01:52 Complete Blood Count AUTO DIFF Stat EKG-12 Lead Stat 07/23/21 01:53 CT head/brain wo con Stat XR chest 1V Stat 07/23/21 01:54 Troponin & CK Cardiac Panel Stat Discontinued Medications Sodium Chloride (Normal Saline 0.9%) 1,000 mls @ 1,000 mls/hr IV CONT FABIENNE Last Infusion: 07/23/21 03:25 Dose: Infused Documented by: Vital Signs Vital signs: Vital Signs - 8 hr 07/23/21 01:52 07/23/21 02:50 Temperature 97.9 F Pulse Rate 74 Pulse Rate [Orthostatic Lying] 76 Pulse Rate [Orthostatic Sitting] 91 H Pulse Rate [Orthostatic Standing] 78 Respiratory Rate 18 Blood Pressure 136/87 Blood Pressure [Orthostatic Lying] 125/75 Blood Pressure [Orthostatic Sitting] 136/79 Blood Pressure [Orthostatic Standing] 134/78 Pulse Oximetry 98 MDM - Syncope Lab Data Result diagrams: 07/23/21 01:50 07/23/21 01:50 Labs: Lab Results 07/23/21 07/23/21 07/23/21 Range/Units 01:50 01:50 01:50 WBC 4.7 (4.5-11.0) X10^3/uL RBC 4.46 (4.0-5.2) X10^6/uL Hgb 13.7 (12.0-16.0) g/dL Hct 40.2 (36-46) % MCV 90.1 (80-100) fL MCH 30.8 (26-34) PG MCHC 34.2 (30-36) % RDW 13.5 (11.6-14.8) % Plt Count 218 (150-400) X10^3/uL Neut % (Auto) 47.7 L (50-75) % Lymph % (Auto) 45.3 H (25-40) % [place] % (Auto) 4.0 (3-14) % Eos % (Auto) 2.4 (2-4) % Baso % (Auto) 0.6 (0-2) % Neut # (Auto) 2300 (9841-5855) /uL Lymph # (Auto) 2100 (4262-1921) /uL [place] # (Auto) 200 (0-900) /uL Eos # (Auto) 100 (0-450) /uL Baso # (Auto) 0 (0-100) /uL Sodium 140 (137-145) mmol/L Potassium 3.4 (3.4-5.1) mmol/L Chloride 108 H (98-107) mmol/L Carbon Dioxide 29 (22-32) mmol/L BUN 15 (7-17) mg/dL Creatinine 0.69 (0.52-1.04) mg/dL Estimated GFR > 60.0 (>60) mL/min BUN/Creatinine Ratio 21.7 (6-22) Glucose 121 H (70-100) mg/dL Lactate 1.1 (0.7-2.1) mmol/L Calcium 9.6 (8.4-10.2) mg/dL Total Bilirubin 0.7 (0.2-1.3) mg/dL AST 24 (14-36) IU/L ALT 21 (<35) IU/L Alkaline Phosphatase 73 (38-126) U/L Total Creatine Kinase (30-135) U/L CK-MB (CK-2) CK-MB (CK-2) Rel Index Troponin I (0.01-0.034) ng/mL Total Protein 6.6 (6.3-8.2) g/dL Albumin 4.0 (3.5-5.0) g/dL Globulin 2.6 (1.7-4.1) g/dL Albumin/Globulin Ratio 1.5 (1.0-2.8) 07/23/21 Range/Units 01:50 WBC (4.5-11.0) X10^3/uL RBC (4.0-5.2) X10^6/uL Hgb (12.0-16.0) g/dL Hct (36-46) % MCV (80-100) fL MCH (26-34) PG MCHC (30-36) % RDW (11.6-14.8) % Plt Count (150-400) X10^3/uL Neut % (Auto) (50-75) % Lymph % (Auto) (25-40) % [place] % (Auto) (3-14) % Eos % (Auto) (2-4) % Baso % (Auto) (0-2) % Neut # (Auto) (3504-2193) /uL Lymph # (Auto) (0550-6024) /uL [place] # (Auto) (0-900) /uL Eos # (Auto) (0-450) /uL Baso # (Auto) (0-100) /uL Sodium (137-145) mmol/L Potassium (3.4-5.1) mmol/L Chloride (98-107) mmol/L Carbon Dioxide (22-32) mmol/L BUN (7-17) mg/dL Creatinine (0.52-1.04) mg/dL Estimated GFR (>60) mL/min BUN/Creatinine Ratio (6-22) Glucose (70-100) mg/dL Lactate (0.7-2.1) mmol/L Calcium (8.4-10.2) mg/dL Total Bilirubin (0.2-1.3) mg/dL AST (14-36) IU/L ALT (<35) IU/L Alkaline Phosphatase (38-126) U/L Total Creatine Kinase 55 (30-135) U/L CK-MB (CK-2) TNP CK-MB (CK-2) Rel Index TNP Troponin I < 0.012 (0.01-0.034) ng/mL Total Protein (6.3-8.2) g/dL Albumin (3.5-5.0) g/dL Globulin (1.7-4.1) g/dL Albumin/Globulin Ratio (1.0-2.8) Imaging Data CT scan - head: Radiologist's Impression: No acute intracranial finding Chest x-ray: Radiologist's Impression: No acute findings ECG Data Interpretation: Normal sinus rhythm rate 67 [place] interval 152 QRS [address] changes or T-wave inversions MDM Narrative Medical decision making narrative: Patient woke up extremely hot her then got up to use the restroom where it sounds as though she had a vasovagal reaction. She has no focal deficits. She does have a prior stroke the symptoms are not consistent with stroke. She is overall feeling significantly better. Blood work in imaging or overall reassuring Discharge Plan Departure Patient Disposition: Home Clinical Impression: Syncope, vasovagal Instructions: DI for Syncope in Adults (Fainting) Activity Restrictions/Additional Instructions: *You have been diagnosed with vasovagal reaction *What to do: At this time seems passed out possibly from a hot flash. *Continue to take medications as directed *Follow up with your primary care provider in 2-3 days or call [phone] *Return to ER if you should have recurrent episode of passing out, chest pain palpitations weakness numbness tingling or any new, worsening or concerning symptoms Prescriptions: No Action aspirin 81 mg Tablet,Delayed Release (Dr/Ec) 162 mg PO DAILY Qty: 60 2RF atorvastatin 40 mg tablet 40 mg PO BEDTIME Qty: 90 3RF niacin 500 mg capsule, extended release 500 mg PO BEDTIME Qty: 90 2RF omega 4-wto-oxe-fish oil [Fish Oil] 1,000 mg (120 mg-180 mg) capsule 1 cap PO DAILY Qty: 90 2RF carvedilol 3.125 mg tablet 3.125 mg PO Q12H Qty: 120 3RF Rx Instructions: must administer with a meal/food Referrals: Nicole Burns MD [Primary Care Provider] -
[2021-07-23] MEDS: SODIUM CHLORIDE 0.9% 1,000 ML 1000 ML IV (02:01)
[2021-07-23 02:05] LABS: Add Manual Diff / Slide Review NO; Basophils Absolute Auto 0 /uL (0-100); Basophils Percent Auto 0.6 % (0-2); Eosinophils Absolute Auto 100 /uL (0-450); Eosinophils Percent Auto 2.4 % (2-4); Hematocrit 40.2 % (36-46); Hemoglobin 13.7 g/dL (12.0-16.0); Lymphocytes Absolute Auto 2100 /uL (1100-4500); Lymphocytes Percent Auto 45.3 % (25-40); Mean Corpuscular HGB Conc 34.2 % (30-36); Mean Corpuscular Hemoglobin 30.8 PG (26-34); Mean Corpuscular Volume 90.1 fL (80-100); Monocytes Absolute Auto 200 /uL (0-900); Neutrophils Absolute Auto 2300 /uL (1500-7000); Neutrophils Percent Auto 47.7 % (50-75); Platelet Count 218 X10^3/uL (150-400); Red Blood Cell Count 4.46 X10^6/uL (4.0-5.2); Red Cell Distribution Width 13.5 % (11.6-14.8); White Blood Cell Count 4.7 X10^3/uL (4.5-11.0)
[2021-07-23 02:08] LABS: Creatine Kinase 55 U/L (30-135); Lactate (Lactic Acid) 1.1 mmol/L (0.7-2.1)
[2021-07-23 02:09] LABS: Alanine Aminotransferase 21 IU/L (<35); Albumin Globulin Ratio 1.5 (1.0-2.8); Alkaline Phosphatase 73 U/L (38-126); Aspartate Aminotransferase 24 IU/L (14-36); BUN Creatinine Ratio 21.7 (6-22); Bilirubin Total 0.7 mg/dL (0.2-1.3); Blood Urea Nitrogen 15 mg/dL (7-17); Calcium 9.6 mg/dL (8.4-10.2); Carbon Dioxide 29 mmol/L (22-32); Chloride 108 mmol/L (98-107); Estimated Glomerular Filt Rate > 60.0 mL/min (>60); Globulin 2.6 g/dL (1.7-4.1); Glucose 121 mg/dL (70-100); HEMOLYSIS < 15 (0-50); Potassium 3.4 mmol/L (3.4-5.1); Sodium 140 mmol/L (137-145); Total Protein 6.6 g/dL (6.3-8.2)
[2021-07-23 02:21] LABS: Troponin I < 0.012 ng/mL (0.01-0.034)
[2021-07-23 02:50] VITALS: BP 125/75; BP 134/78; BP 136/79; PULSE 76; PULSE 78; PULSE 91
== END 2021-07-23 03:00 | disposition home or self-care (01) ==
PROVIDERS: Emergency Provider Emergency Medicine; PCP Family Medicine
DX: R55 Syncope and collapse (principal)
CPT/HCPCS: 70450; 71045; 80053; 82550; 83605; 84484; 85025; 93005; 93010; 96374; 99284

== ENCOUNTER → 2021-08-01 07:29 | Outpatient (CLI) | payer OTHER, SELFPAY ==
[2021-08-01 08:09] LABS: C-Reactive Protein Quant < 0.5 mg/dL (<1.0)
[2021-08-01 08:11] LABS: Rheumatoid Factor < 8.6 IU/mL (<12.0)
[2021-08-01 08:18] LABS: Erythrocyte Sedimentation Rate 2 MM/HR (0-20)
[2021-08-03 15:09] LABS: ANA Screen, IFA Negative (.)
[2021-08-03 23:21] LABS: CCP Antibodies IgG/IgA 6 units (0-19)
== END ==
PROVIDERS: PCP Family Medicine; Referring Provider Family Medicine; Visit Provider Family Medicine
DX: R52 Pain, unspecified (principal)
CPT/HCPCS: 36415; 85651; 86038; 86140; 86200; 86430

== ENCOUNTER → 2021-09-15 07:41 | Outpatient (CLI) | payer OTHER, SELFPAY ==
--- NOTE | 2021-09-15 | DI.MG.S_ITS ---
BILATERAL DIGITAL SCREENING MAMMOGRAM 3D/2D WITH CAD: 09/15/2021 CLINICAL: Routine screening. Family history of breast cancer. Comparison is made to exams dated: 03/12/2019 mammogram and 03/07/2018 mammogram - out side. The tissue of both breasts is heterogeneously dense. This may lower the sensitivity of mammography. Current study was also evaluated with a Computer Aided Detection (CAD) system. No significant masses, calcifications, or other findings are seen in either breast. There has been no significant interval change. IMPRESSION: NEGATIVE There is no mammographic evidence of malignancy. A 1 year screening mammogram is recommended. This exam was interpreted at Station ID: [id number]. NOTE: For mammograms, a report in lay terms will be sent to the patient. Approximately 15% of breast malignancies will not be visualized mammographically. In the management of a palpable breast mass, a negative mammogram must not discourage biopsy of a clinically suspicious lesion. Electronically Signed By: Joyce peters/geni:09/15/2021 09:37:59 letter sent: Normal Exam ACR BI-RADS Category 1: Negative [id number]
== END ==
PROVIDERS: PCP Student in an Organized Health Care Education/Training Program; Referring Provider Student in an Organized Health Care Education/Training Program; Visit Provider Student in an Organized Health Care Education/Training Program
DX: Z12.31 Encounter for screening mammogram for malignant neoplasm of breast (principal); Z80.3 Family history of malignant neoplasm of breast
CPT/HCPCS: 77063; 77067

== ENCOUNTER → 2022-03-19 16:59 | Outpatient (CLI) | payer OTHER, SELFPAY ==
--- NOTE | 2022-03-19 17:02 | DI.RAD.S_ITS ---
PROCEDURE: XR CERVICAL SPINE 4V OR 5V INDICATIONS: M99.11, M54.2. Neck pain TECHNIQUE: 5 views of the cervical spine acquired. COMPARISON: None. FINDINGS: Bones: No fractures or dislocations to the T1 level. Straightening of the normal cervical lordosis, a finding which can be seen in the setting of muscle strain and/or spasm. Moderate-severe multilevel degenerative changes with disc height loss, endplate spurring, and facet arthropathy. Degenerative changes are most pronounced at the mid-lower cervical spine, C5 through C7. There is possible associated bony neural foraminal narrowing however this could be artifactual related to projection/rotation. This would be better evaluated by MRI. 3 millimeters anterolisthesis C3 on C4. Soft tissues: No prevertebral soft tissue swelling. IMPRESSION: Moderate-severe multilevel degenerative changes of the cervical spine. Dictated by: Taurus Lima M.D. on 03/20/2022 at 8:34 Approved by: Taurus Lima M.D. on 03/20/2022 at 8:44
== END ==
PROVIDERS: PCP Student in an Organized Health Care Education/Training Program; Referring Provider Chiropractor; Visit Provider Chiropractor
DX: M99.11 Subluxation complex (vertebral) of cervical region (principal); M47.812 Spondylosis without myelopathy or radiculopathy, cervical region; M54.2 Cervicalgia
CPT/HCPCS: 72050

== ENCOUNTER → 2024-03-20 13:35 | Outpatient (CLI) | payer OTHER, SELFPAY ==
--- NOTE | 2024-03-20 13:38 | DI.RAD.S_ITS ---
PROCEDURE: XR WRIST RT MIN 3V INDICATIONS: Right wrist pain TECHNIQUE: 4 views of the wrist were acquired. COMPARISON: None. FINDINGS: Bones: No fractures or dislocations. No suspicious bony lesions. Soft tissues: No suspicious soft tissue calcifications. IMPRESSION: No acute bony abnormality. Dictated by: Temo Hernandez M.D. on 03/20/2024 at 20:06 Approved by: Temo Hernandez M.D. on 03/20/2024 at 20:08
== END ==
PROVIDERS: PCP Student in an Organized Health Care Education/Training Program; Referring Provider Nurse Practitioner Family; Visit Provider Nurse Practitioner Family
DX: M25.531 Pain in right wrist (principal)
CPT/HCPCS: 73110

== ENCOUNTER → 2024-06-03 11:01 | Outpatient (CLI) | payer OTHER, SELFPAY ==
--- NOTE | 2024-06-03 11:03 | DI.RAD.S_ITS ---
PROCEDURE: XR SHOULDER LT MIN 2V INDICATIONS: Left shoulder strain TECHNIQUE: 3 views of the shoulder were acquired. COMPARISON: None. FINDINGS: No acute fracture. Mild inferior subluxation of the humeral head relative to the glenoid, possibly secondary to a joint effusion. Mild acromioclavicular osteoarthritis. The visualized left hemithorax is within normal limits. IMPRESSION: Possible left glenohumeral joint effusion. MRI shoulder without contrast recommended for further evaluation. Dictated by: Alonso Dinero M.D. on 06/03/2024 at 19:52 Approved by: Alonso Dinero M.D. on 06/03/2024 at 19:53
== END ==
PROVIDERS: PCP Student in an Organized Health Care Education/Training Program; Referring Provider Nurse Practitioner Family; Visit Provider Nurse Practitioner Family
DX: S46.912A Strain of unspecified muscle, fascia and tendon at shoulder and upper arm level, left arm, initial encounter (principal); M19.012 Primary osteoarthritis, left shoulder; X58.XXXA Exposure to other specified factors, initial encounter
CPT/HCPCS: 73030